=== PATIENT | female | born 1990 | race African-American/Black ===

== ENCOUNTER 2016-08-24 19:52 | Emergency (ER) | payer MEDICAID ==
[~2016-08-24] VITALS: Ht 165.1 cm; Wt 88.2 kg
[2016-08-24] MEDS ORDERED: FAMOTIDINE 20 MG/2 ML IVP ONE (20:30)
[2016-08-24] MEDS ORDERED: ONDANSETRON 2MG/ML, 2ML IVPush ONE (20:30)
[2016-08-24] MEDS ORDERED: SODIUM CHLORIDE 0.9% 1,000ML IVBOLUS ONE ×2 (20:30→23:30)
[2016-08-24 20:40] LABS: ASPARTATE AMINO TRANSFERASE 21 U/L (15-37); BLOOD UREA NITROGEN 16 mg/dL (7-18)
[2016-08-24] MEDS ORDERED: METH750T87 PO (20:50)
[2016-08-24] MEDS ORDERED: KETOROLAC 30 MG/1 ML IVPush ONE (21:00)
[2016-08-24] MEDS ORDERED: ACETAMINOPHEN 325 MG TABLET PO ONE (21:00)
[2016-08-24] MEDS ORDERED: ONDANSETRON 2MG/ML, 2ML ONE (21:40)
[2016-08-24] MEDS ORDERED: ACETAMINOPHEN 325 MG TABLET ONE (21:40)
[2016-08-24] MEDS ORDERED: KETOROLAC 30 MG/1 ML ONE (21:40)
[2016-08-24] MEDS ORDERED: FAMOTIDINE 20 MG/2 ML ONE (21:41)
[2016-08-24] MEDS ORDERED: MORPHINE SULFATE 4 MG/ML, 1ML ONE (23:17)
[2016-08-24] MEDS ORDERED: MORPHINE SULFATE 4 MG/ML, 1ML IVPush ONE (23:30)
[2016-08-25 00:13] VITALS: BP 109/67
== END 2016-08-25 00:15 | disposition home or self-care (01) ==
LOC: ED 23:49
DX: K52.9 Noninfective gastroenteritis and colitis, unspecified (principal); Z98.51 Tubal ligation status
CPT/HCPCS: 36415; 80053; 81003; 84703; 85025; 96361; 96374; 96375; 99284; J1885; J2405; J7030; S0028

== ENCOUNTER 2016-11-12 23:56 | Emergency (ER) | payer MEDICAID ==
[~2016-11-12] VITALS: Ht 165.1 cm; Wt 88.0 kg
[~2016-11-12 23:56] MED LIST: METH750T87 PO
[2016-11-12 23:57] VITALS: BP 130/85
[2016-11-13] MEDS ORDERED: LIDOCAINE 1%, 20ML ONE (00:22)
[2016-11-13] MEDS ORDERED: HYDROcodone/APAP 5/325 TABLET ONE (00:23)
[2016-11-13] MEDS ORDERED: HYDROcodone/APAP 5/325 TABLET PO ONE (00:30)
[2016-11-13] MEDS ORDERED: LIDOCAINE 1%, 20ML INFIL ONE (00:30)
== END 2016-11-13 01:33 | disposition home or self-care (01) ==
LOC: ED 11-13 00:30
DX: L73.2 Hidradenitis suppurativa (principal)
CPT/HCPCS: 10060

== ENCOUNTER 2016-11-25 18:34 | Emergency (ER) | payer BC, MEDICAID ==
[~2016-11-25] VITALS: Ht 165.1 cm; Wt 89.8 kg
[2016-11-25] MEDS ORDERED: LIDOCAINE 1%, 20ML ONE (19:29)
[2016-11-25] MEDS ORDERED: LIDOCAINE 1%-EPI 1:100K, 20ML SQ ONE (19:30)
[2016-11-25 20:20] VITALS: BP 131/69
[2016-11-28] MEDS ORDERED: CYCL5TAB PO (12:36)
[2016-11-28] MEDS ORDERED: TRAZ50TA18 PO (12:36)
[2016-11-28] MEDS ORDERED: HYDR-3138 PO (12:36)
[2016-11-28] MEDS ORDERED: IBUP1TAB11 PO (12:36)
== END 2016-11-25 20:32 | disposition home or self-care (01) ==
LOC: ED 20:26
DX: L73.2 Hidradenitis suppurativa (principal); Z87.891 Personal history of nicotine dependence
CPT/HCPCS: 10060; 99283; J3490

== ENCOUNTER → 2016-11-28 | Outpatient (CLI) | payer OTHER, MEDICAID ==
[~2016-11-28] MED LIST changes: +CYCL5TAB PO; +HYDR-3138 PO; +IBUP1TAB11 PO; +TRAZ50TA18 PO
== END ==
LOC: STAR 12:08
PROVIDERS: ATTEND Surgery
DX: Z02.9 Encounter for administrative examinations, unspecified (principal)

== ENCOUNTER 2016-12-04 08:05 | Day surgery (SDC) | payer OTHER, MEDICAID ==
[~2016-12-04] VITALS: Ht 165.1 cm; Wt 87.6 kg
[2016-12-04] MEDS ORDERED: LACTATED RINGERS 1,000 ML IV SCH (08:37)
[2016-12-04 08:41] VITALS: BP 122/86
[2016-12-04 09:09] LABS: HCG UR OBC PASS
[2016-12-04] MEDS ORDERED: MIDAZOLAM 1 MG/ML, 2ML ONE ×2 (09:21→11:01)
[2016-12-04] MEDS ORDERED: FENTANYL PF 250 MCG/5ML ONE (09:21)
[2016-12-04] MEDS ORDERED: CEFAZOLIN 1,000 MG ONE (09:30)
[2016-12-04] MEDS ORDERED: DEXAMETHASONE 4 MG/ML, 1ML ONE (09:30)
[2016-12-04] MEDS ORDERED: PROPOFOL 10 MG/ML, 20ML ONE (09:30)
[2016-12-04] MEDS ORDERED: SUCCINYLCHOLINE 20 MG/ML, 10ML ONE (09:30)
[2016-12-04] MEDS ORDERED: ONDANSETRON 2MG/ML, 2ML ONE (09:30)
[2016-12-04] MEDS ORDERED: KETOROLAC 30 MG/1 ML ONE (09:30)
[2016-12-04] MEDS ORDERED: LIDOCAINE/MPF 2%-EPI 1:200K, 20 ML ONE (09:54)
[2016-12-04] MEDS ORDERED: ACETAMINOPHEN 650 MG/20.3 ML UDC ONE (10:44)
[2016-12-04] MEDS ORDERED: OXYcodone 5 MG/5 ML ORAL.SOL UDC ONE (10:44)
[2016-12-04] MEDS ORDERED: FENTANYL PF 100 MCG/2ML ONE (10:44)
[2016-12-04] MEDS: FENTANYL PF 100 MCG/2ML IV PRN ×3 (10:45→10:56)
[2016-12-04] MEDS ORDERED: HYDROmorphone 1 MG/ML, 1ML ONE (10:56)
[2016-12-04] MEDS ORDERED: HYDROmorphone 1 MG/ML, 1ML IV PRN (11:00)
[2016-12-04] MEDS ORDERED: OXYcodone 5 MG/5 ML ORAL.SOL UDC PO PRN (11:00)
[2016-12-04] MEDS ORDERED: ACETAMINOPHEN 325 MG TABLET PO PRN (11:00)
[2016-12-04] MEDS ORDERED: MEPERIDINE/PF 25MG/0.5ML IVPush PRN (11:00)
[2016-12-04] MEDS ORDERED: MIDAZOLAM 1 MG/ML, 2ML IV PRN (11:00)
[2016-12-04] MEDS ORDERED: PROMETHAZINE 25 MG/ML, 1ML IV PRN (11:00)
[2016-12-04] MEDS ORDERED: ONDANSETRON 2MG/ML, 2ML IVPush PRN (11:00)
[2016-12-04] MEDS ORDERED: DIPHENHYDRAMINE 12.5MG/5ML, 10ML UDC PO ONE (13:00)
== END 2016-12-04 14:12 ==
LOC: OUT 08:05
PROVIDERS: ATTEND Surgery
DX: L73.2 Hidradenitis suppurativa (principal)
CPT/HCPCS: 11450; 81025; 88305; J1170; J2250; J3010; J3490; J7120; J0690; J1100; J1885; J2405; J2704; J0330